=== PATIENT | female | born 1985 | race Caucasian/White ===

== ENCOUNTER 2017-04-14 15:35 | Emergency (ER) | payer OTHER ==
[~2017-04-14] VITALS: Ht 165.1 cm; Wt 61.5 kg
[2017-04-14 16:26] LABS: HEMATOCRIT 34.7 % (36.0-46.0); MCH 32.3 PG (29.0-34.0); MCHC 34.6 G/DL (30.0-36.0); MCV 93.3 FL (83-99); MEAN PLAT.VOLUME 10.5 uM^3 (9.5-12.4); PLATELET COUNT 234 K/uL (156-360); RBC DIS.WIDTH-CV 11.1 % (11.8-14.6); RBC DIS.WIDTH-SD 37.7 % (39-53); RED BLOOD COUNT 3.72 M/uL (3.80-5.20); WHITE BLOOD COUNT 13.8 K/uL (4.1-10.2)
[2017-04-14 16:34] LABS: CHLORIDE 103 mEq/L (99-109); POTASSIUM 3.5 mEq/L (3.7-5.4); SODIUM 135 mEq/L (136-147)
[2017-04-14 16:36] LABS: GLUCOSE 125 mg/dL (70-99)
[2017-04-14 16:37] LABS: ANION GAP 9 MEQ/L (2-14)
[2017-04-14 16:38] LABS: TOTAL BILIRUBIN 0.5 mg/dL (0.0-1.0)
[2017-04-14 16:39] LABS: ALKALINE PHOSPHATASE 36 IU/L (3-129)
[2017-04-14 16:40] LABS: GFR ESTIMATE (CALCULATED) > 59 mL/min/
[2017-04-14 16:41] LABS: UREA NITROGEN (BUN) 10 mg/dL (9-23)
[2017-04-14 16:43] LABS: LIPASE 5 U/L (1.0-51.0)
[2017-04-14 16:49] LABS: QUANTITATIVE HCG < 4.0 MIU/ML
[2017-04-14 17:02] LABS: ADD MIUA? NO; BILIRUBIN NEGATIVE; BLOOD NEGATIVE; COLOR YELLOW ((YELLOW)); GLUCOSE (STRIP) NEGATIVE; KETONES 20; LEUKOCYTES NEGATIVE; NITRITE NEGATIVE; PROTEIN (STRIP) NEGATIVE; SPECIFIC GRAVITY 1.011 (1.000-1.030); UCUL ADDED? NO; UROBILINOGEN 0.2 MG/DL (0.2-1.0)
[2017-04-14 20:40] VITALS: BP 123/65
== END 2017-04-14 20:41 | disposition left against medical advice (07) ==
LOC: EME 15:35
PROVIDERS: Physician Assistant Medical
DX: R10.31 Right lower quadrant pain (principal); F17.200 Nicotine dependence, unspecified, uncomplicated; Z53.20 Procedure and treatment not carried out because of patient's decision for unspecified reasons
CPT/HCPCS: 74177; 80053; 81003; 83690; 84702; 85027; 99281; 99285; J1885; J2270; J2405; J7030